=== PATIENT | female | born 1945 | race Caucasian/White ===

== ENCOUNTER 2017-10-30 21:47 | Inpatient (IN) | payer MEDICARE ==
[~2017-10-30 21:47] MED LIST: ISOVUE-370 76%-LOCM 1 ML ONE
[2017-10-30 22:29] LABS: Anion Gap 9 mmol/L (-14-95); Lactate 0.97 mmol/L (0.50-2.20); POC Est. GFR-MDRD-African-Amer 55; POC Estimated GFR-MDRD 45; T. Carbon Dioxide 32.1 mmol/L (1.0-85.0); pH (Venous) 7.342 (7.35-7.45); vO2 Saturation-calc 57.5 % (0.0-100.0)
[2017-10-30 22:29] LABS: #Eosinphils 0.1 thou/uL (0.0-0.7); #Monocytes 0.4 thou/uL (0.11-0.59); #Neutrophils 2.4 thou/uL (1.40-6.50); %Basophils 0.8 % (0.0-1.0); %Eosinophils 1.9 % (0.0-10.0); %Lymphocytes 40.5 % (21.0-51.0); %Monocytes 7.9 % (0.0-10.0); Hematocrit 39.7 % (36.0-47.0); Mean Platelet Volume 9.2 fL (7.4-10.4); Red Blood Cell (RBC) Count 4.14 mill/uL (4.20-5.40); White Blood Cell (WBC) Count 4.9 thou/uL (4.8-10.8)
--- NOTE | 2017-10-30 22:34 | CT ---
CT BRAIN NONCONTRAST: History: Stroke. Comparison: 01-08-17 FINDINGS: Noncontrast enhanced CT images of the brain demonstrate likely small area of old deep white matter an d basal ganglion stroke, not significantly changed since the previous comparison exam. No evidence of acute intracranial masses, hemorrhages, or strokes seen. IMPRESSION: Stable CT appearance of the brain. No acute intracranial abnormalities seen. Findings discussed with Dr. Owen at 10:00 p.m. on 10-30-17. Code CR POS: [facility]
[2017-10-30 22:36] LABS: PTT 28.5 SEC (22.9-36.1); Prothrombin Time 13.8 SEC (12.0-14.7)
--- NOTE | 2017-10-30 22:37 | CT ---
CONTRAST ENHANCED CTA OF THE BRAIN WITH PERFUSION: Technique: 2D and 3D reconstruction images performed on an independent 3D workstation. FINDINGS: The internal carotid arteries bilaterally are patent. The DAIANA, MCA and [employer] vessels are patent. Verteb ral basilar arteries are patent. No evidence of arterial occlusion is seen. The brain perfusion demon strates no definite evidence of areas of brain perfusion abnormalities. IMPRESSION: Normal intracranial CTA and brain perfusion. Findings discussed with Dr. Owen at 10:23 p.m. on 10-30-17. Code CR. POS: [facility]
[2017-10-30 22:40] LABS: ALT (SGPT) 11 U/L (8-55); AST (SGOT) 15 U/L (5-34); Alkaline Phosphatase 90 U/L (40-150); Anion Gap 11 mmol/L (10-20); BUN (Urea Nitrogen) 11 mg/dL (9.8-20.1); Bilirubin, Total 0.2 mg/dL (0.2-1.2); Calc. Creatinine Clearance 0 mL/min (70-130); Calcium 8.8 mg/dL (7.8-10.44); Carbon Dioxide 27 mmol/L (23-31); Chloride 104 mmol/L (98-107); Estimated GFR-MDRD 45; Globulin 2.9 g/dL (2.4-3.5); Protein, Total 6.5 g/dL (6.0-8.3)
--- NOTE | 2017-10-30 22:44 | CT ---
CTA CAROTIDS: History: Stroke. Technique: Contrast enhanced CTA of the carotid arteries performed. 2D and 3D reconstruction images p erformed on an independent 3D workstation. FINDINGS: The right brachiocephalic artery is unremarkable. Calcifications are seen in the right and left commo n carotid arteries without evidence of significant stenosis. The right and left distal, CCA, and prox imal internal carotid artery as well as the cervical portions of the ICA are patent without evidence of significant disease. Vertebral arteries bilaterally are unremarkable. IMPRESSION: Normal carotid CTA. POS: [facility]
[2017-10-30 22:45] LABS: Troponin I Less than 0.010 ng/mL (< 0.028)
[2017-10-30 23:26] LABS: Bilirubin Negative (Negative); Blood, Urine Negative (Negative); Glucose, Urine (Dipstick) Negative (Negative); Ketone, Urine Negative (Negative); Nitrite Negative (Negative); Protein, Urine (Dipstick) Negative (Neg-Trace); Urobilinogen 0.2 mg/dL (0.2-1.0)
[2017-10-30] MEDS ORDERED: Aspirin 300 MG Suppository ONE (23:51)
--- NOTE | 2017-10-31 00:45 | PDOC.EVN ---
Event Note - Event Note Event Note: [id number] 1. R/O CVA 2. HTN 3. H/O DM type 2 4. H/O HPL PLAN: SEE ORDERS
[2017-10-31] MEDS ORDERED: Acetaminophen 325 MG TAB PO PRN (01:11)
[2017-10-31] MEDS ORDERED: Ondansetron ODT 4 MG TAB SL PRN (01:11)
[2017-10-31] MEDS ORDERED: Ondansetron HCl/PF 4 MG/2 ML Vial IVP PRN (01:11)
[2017-10-31] MEDS ORDERED: hydrALAZINE 20 MG/ML VIAL SLOW IVP PRN (01:19)
[2017-10-31 01:23] VITALS: BMI 41.2
[2017-10-31] MEDS: Sodium Chloride 0.9% 1,000 ML IV SCH ×2 (02:13→16:01)
--- NOTE | 2017-10-31 07:08 | HP ---
DATE OF ADMISSION: 10/31/2017 CHIEF COMPLAINT: Headache. HISTORY OF PRESENT ILLNESS: Patient is a 71-year-old female with past medical history of hypertension, seizures, GERD, CVA, depression, was brought to the hospital because of headache and left-sided weakness. Patient said according to the caregiver the patient all of a sudden started complaining of headache. Headache was associated with vomiting and nausea. Patient then found to have left-sided weakness, so patient was brought to the ER. Upon ER arrival, the stroke team was called. Patient was found to have left-sided weakness and aphasia. ED physician discussed the case with neurologist, Dr. Bermudez, who recommended not to do a tPA as the patient is well known to him. Patient currently denies any complaints at this time. Patient kept aphasic, but showing her hand and answering questions through her hand and with signals, but not speaking. PAST MEDICAL HISTORY: As per HPI. PAST SURGICAL HISTORY: History of IVC filter and Watchman placement. SOCIAL HISTORY: Denies smoking, denies alcohol, denies any drugs. FAMILY HISTORY: Positive for 2 weeks prior to Thanksgiving time according to the caregiver. MEDICATIONS: Reviewed. REVIEW OF SYSTEMS: Constitutional: None available from the patient except for positive for headache, nausea, vomiting, and left-sided weakness per caregiver. PHYSICAL EXAMINATION: VITAL SIGNS: At the time of H and P, performed, blood pressure is 147/100, pulse oximetry is 95%, heart rate 92. GENERAL APPEARANCE: Patient appears tired and denies patent. NECK: Supple, no JVD. CARDIOVASCULAR: S1, S2 present. Regular rate and rhythm. No murmurs, no rubs , no gallops. RESPIRATORY: No wheezing, no rhonchi. Breath sounds bilaterally. GASTROINTESTINAL: Abdomen is distended, soft, nontender. No guarding, no organomegaly, no masses felt. PSYCHIATRIC: Mood appropriate at this time. CRANIAL NERVES SYSTEM: Awake. Not follow some commands. Positive for aphasia. Positive for left-sided weakness. Able to more right upper and right lower extremity. Able to say yes or no with the hand. PSYCHIATRIC: Mood, calm at this time. LABORATORY DATA: At the time of H and P performed, sodium 138, potassium 4.4, chloride 104, CO2 of 27, BUN of 11, creatinine 1.18. Troponin less than 0.010, PT of 13.8, INR 1. White count 4.9, hemoglobin 12.9, platelet count is 188. Urine negative. CT brain without contrast, stable CT appearance. No acute disease seen. CTA head and neck with brain perfusion normal CT angiography done in the ER, normal carotid CTA. ASSESSMENT AND PLAN: The patient is a 71-year-old female. 1. Rule out cerebrovascular accident. Plan to consult Neurology to evaluate the patient. Plan to hold off the MRI because of the history of Watchman placement. We will go ahead and monitor the patient closely. We will wait for neuro input. We will check EEG also, and we will follow the patient. We will do PT, OT, speech therapy evaluation. 2. History of headache plus nausea, vomiting. Plan to add antiemetics. Monitor closely. 3. History of hypertension. Monitor blood pressure. We will try to keep the blood pressure elevated. If the blood pressure is elevated above 200 then we will treat with p.r.n. BP meds. 4. Diabetes Mellitus type 2: Monitor blood sugars. We will do insulin sliding scale. 5. History of seizures. Continue antiepileptics. 6. History of gastroesophageal reflux disease. Continue proton pump inhibitor. The case was discussed in detail with the patient. DEYANIRA
--- NOTE | 2017-10-31 07:47 | RAD ---
ABDOMEN ONE VIEW: History: 71-year-old female with abdominal pain, chest pain, diarrhea, vomiting. FINDINGS: There is some contrast media within the renal collecting systems and within the bladder from a prior CT. There is some gas and some scattered fecal material in the colon. Post-operative changes in the r egion of the stomach. Status post vertebroplasty changes at T10. IMPRESSION: Iodinated contrast media within the renal collecting systems and bladder. Scattered gas and fecal mat erial in the colon. Post-operative changes of the stomach. No bowel obstruction or overt calculus or free air. POS: [facility]
[2017-10-31] MEDS ORDERED: ALPRAZolam 0.5 MG TAB PO PRN (08:35)
[2017-10-31] MEDS ORDERED: Nitroglycerin 0.4 MG TAB (25 Tab Bottle) SL PRN (08:35)
[2017-10-31] MEDS ORDERED: Non-Formulary Item 1 EACH (Sertraline Hcl [Zoloft] 50 MG) PO SCH (09:00)
[2017-10-31] MEDS: Heparin 5,000 UNITS/ML VIAL SC SCH ×2 (10:39→20:38)
[2017-10-31] MEDS: PHENobarbital 32.4 MG TAB PO SCH ×2 (11:48→20:38)
[2017-10-31] MEDS: lamoTRIgine 25 MG TAB PO SCH (11:48)
[2017-10-31] MEDS ORDERED: Morphine 4 MG/ML VIAL SLOW IVP SCH (12:15)
[2017-10-31] MEDS: Aspirin 300 MG Suppository PR SCH (12:43)
--- NOTE | 2017-10-31 13:02 | PDOC.EVN ---
Event Note - Event Note Event Note: pt seen and examined. VSS. continues to have aphasia w/o any other neurological deficit. c/o headache. Awaiting ECHO.Awaiting neurology consult. cont AR ASA. will follow. chart reviewed in detail.care discussed w pt
[2017-10-31] MEDS ORDERED: Non-Formulary Item 1 EACH (Omeprazole [Omeprazole] 40 MG) PO SCH (15:00)
[2017-10-31] MEDS ORDERED: PHENobarbital 32.4 MG TAB PO SCH (18:00)
[2017-10-31] MEDS ORDERED: Non-Formulary Item 1 EACH (Mirabegron [Myrbetriq] 50 MG) PO SCH (21:00)
[2017-10-31] MEDS ORDERED: Atorvastatin Calcium 10 MG TAB PO SCH (21:00)
[2017-10-31] MEDS ORDERED: Docusate 100 MG CAP PO SCH ×2 (21:00)
[2017-11-01] MEDS: Sodium Chloride 0.9% 1,000 ML IV SCH ×2 (06:20→15:48)
[2017-11-01] MEDS: Heparin 5,000 UNITS/ML VIAL SC SCH (09:49)
[2017-11-01] MEDS: lamoTRIgine 25 MG TAB PO SCH (09:50)
[2017-11-01] MEDS: PHENobarbital 32.4 MG TAB PO SCH (10:45)
[2017-11-01] MEDS ORDERED: levETIRAcetam 500 MG TAB PO SCH ×2 (10:45→21:00)
[2017-11-01] MEDS ORDERED: Aspirin 325 MG TAB PO SCH (10:45)
[2017-11-01] MEDS: Aspirin 300 MG Suppository PR SCH (10:54)
[2017-11-01 14:16] LABS: Bilirubin Negative (Negative); Blood, Urine Large (Negative); Glucose, Urine (Dipstick) Negative (Negative); Ketone, Urine Trace mg/dL (Negative); Nitrite Negative (Negative); Protein, Urine (Dipstick) 100 mg/dL (Neg-Trace)
[2017-11-01 14:23] LABS: Bacteria/HPF Rare-Few HPF (None Seen); Hyaline Casts/LPF 4-6 HYALINE CAST LPF (0-3 Hyaline); RBC/HPF GREATER THAN 50-TNTC HPF (0-3); Squamous Epithelial 0-3 HPF (0-3)
[2017-11-01 14:45] LABS: Yeast-All Forms None Seen HPF (None Seen)
[2017-11-01] MEDS ORDERED: levETIRAcetam 500 mg/5 ml Oral Solution PO SCH (14:45)
[2017-11-01 16:41] VITALS: BP 142/101; TEMP 98.8
--- NOTE | 2017-11-02 01:22 | DIS ---
DATE OF ADMISSION: 10/31/2017 DATE OF DISCHARGE: 11/01/2017 CONDITION AT THE TIME OF DISCHARGE: Stable and improved. DISCHARGE DIAGNOSES: 1. Stress-induced aphasia, now resolved. 2. Urinary tract infection. 3. Hematuria due to acute cystitis. 4. History of seizures. 5. History of cerebrovascular accident. 6. History of gastroesophageal reflux disease, hypertension, and depression. 7. History of inferior vena cava filter. 8. History of arrhythmia status post Watchman device placement. 9. Morbid obesity. PRIMARY CARE PHYSICIAN: Chandni Moore M.D. DISCHARGE DISPOSITION: Home with home health. PROCEDURES DONE IN THE HOSPITAL: Include: 1. CT angiogram of the neck and head, which is normal without any occlusion, stenosis, or plaque. 2. CT scan of the brain, which is stable without any acute abnormalities. 3. Abdominal x-ray which does not show any obstruction. CONSULTATION: Inhouse Neurology, Dr. Garrett Castillo. HISTORY OF PRESENT ILLNESS: Ms. Thompson is a 71-year-old female who recently lost her last m onth, who presented to the emergency room with complaints of headache associated with vomiting, nause a, left-sided weakness, and sudden onset of aphasia. She was admitted as a stroke workup. She was h emodynamically stable upon presentation. Please see admission history and physical for further detai ls. CT angiogram of the head and neck was done in the ER along with CT scan of the brain, which was unremarkable. HOSPITAL COURSE: The patient was admitted to stroke floor. MRI could not be done because of the Dimas chman device. The patient exhibited complete aphasia without any other neurological signs or symptom s. Speech therapist evaluated her, but she failed the speech therapy and was n.p.o. Her medications were changed to IV and Neurology saw the patient. Their recommendation was this is stress related a nd psychogenic in nature. Eventually, the patient had spontaneous resolution of her symptoms complet sharee. She was able to talk again the next morning and pass the swallow study and was able to take her pills and eat normally. Her family was at her bedside all this time. Physical therapy, occupational therapy did recommend some outpatient physical therapy which was kush goins with the help of the home health. The patient was complaining of some dysuria, so UA was checked, which showed multiple rbc's, wbc's, a nd leukocyte esterase, so she was started empirically on oral antibiotic which she will start and fin zheng in the outpatient setting. She will follow up with her primary care physician with results of e urine culture, which was obtained today. She will also have a repeat UA to evaluate for resolution of hematuria. If the hematuria persists, then she would benefit from Urology referral as an outpati ent. Currently, she is stable with stable hemoglobin and hematocrit. PHYSICAL EXAMINATION: GENERAL: She was seen and examined prior to discharge. She is comfortably lying in bed. VITAL SIGNS: Stable. Blood pressure 159/75. NEUROLOGIC: No acute distress. Awake, alert, oriented x3. Talking without any dysarthria. No word finding difficulties noticed. No acute distress. CHEST: Clear to auscultation. HEART: Rate and rhythm is regular. ABDOMEN: Obese, soft, nontender, nondistended. LABORATORY DATA: Hemoglobin 12.9. Serum chemistry showed creatinine of 1.18. Lipid panel normal. Cardiac enzymes are normal. At this time, she will follow up with her primary care physician and if her symptoms reoccur, she can follow up with her own neurologist, Dr. Anne. She actually was supposed to see Dr. Dayana cruz, but because of being in the hospital, she missed that appointment. She is encouraged to remake at appointment with the neurologist who is at [facility]. Discharge plan was discussed with the patient and her family present in the room. They verbalized understanding. All questions were answered.
[2017-11-02] MEDS ORDERED: Aspirin 325 MG TAB PO SCH (09:00)
== END 2017-11-01 17:38 | disposition home health service (06) | DRG 882 ==
LOC: ERS 21:47 → 2SE 10-31 00:08
PROVIDERS: ADMIT Internal Medicine; ATTEND Internal Medicine
DX: F45.8 Other somatoform disorders (principal); N30.01 Acute cystitis with hematuria; G40.909 Epilepsy, unspecified, not intractable, without status epilepticus; R47.01 Aphasia; Z68.41 Body mass index [BMI] 40.0-44.9, adult; K21.9 Gastro-esophageal reflux disease without esophagitis; I10 Essential (primary) hypertension; E66.01 Morbid (severe) obesity due to excess calories; F32.9 Major depressive disorder, single episode, unspecified; Z86.73 Personal history of transient ischemic attack (TIA), and cerebral infarction without residual deficits; Z95.818 Presence of other cardiac implants and grafts
CPT/HCPCS: 0042T; 36415; 36416; 51701; 70450; 70496; 70498; 74000; 80053; 80061; 81003; 81015; 82330; 82553; 82803; 83605; 84484; 85025; 85610; 85730; 87077; 87086; 87186; 93005; 93306; A4216; A4353; G8978-GP-CN; G8979-GP-CL; G8987-GO-CM; G8988-GO-CK; G8996-GN-CH; G8996-GN-CM; G8997-GN-CH; G8997-GN-CK; J1644; J1953; J2270; J2560; J7050

== ENCOUNTER → 2018-02-20 | Day surgery (SDC) | payer MEDICARE, OTHER ==
[2018-02-19 12:30] VITALS: BMI 40.2
[~2018-02-20] MED LIST changes: -ISOVUE-370 76%-LOCM 1 ML ONE; +Lidocaine 1% w/Epinephrine 1:100K 30 ML VIAL ONE; +PROPOFOL 200 MG/20 ML VIAL ONE; +Propofol 500 MG/50 ML VIAL ONE
[2018-02-20 11:38] LABS: #Basophils 0.1 thou/uL (0.0-0.2); #Eosinphils 0.1 thou/uL (0.0-0.7); #Lymphocytes 1.6 thou/uL (1.20-3.40); #Monocytes 0.4 thou/uL (0.11-0.59); #Neutrophils 3.1 thou/uL (1.40-6.50); %Basophils 1.6 % (0.0-1.0); %Eosinophils 2.5 % (0.0-10.0); %Lymphocytes 30.8 % (21.0-51.0); %Monocytes 6.9 % (0.0-10.0); %Neutrophils 58.1 % (42.0-75.0); Hemoglobin 13.1 g/dL (12.0-16.0); Mean Corpuscular HGB CONC 32.3 g/dL (32.0-36.0); Mean Corpuscular Hemoglobin 30.9 pg (27.0-31.0); Mean Corpuscular Volume 95.5 fl (81.0-99.0); Mean Platelet Volume 9.2 fL (7.4-10.4); Platelet Count 224 thou/uL (130-400); Red Blood Cell (RBC) Count 4.24 mill/uL (4.20-5.40); White Blood Cell (WBC) Count 5.3 thou/uL (4.8-10.8)
[2018-02-20 11:47] LABS: PTT 27.7 SEC (22.9-36.1); Prothrombin Time 13.7 SEC (12.0-14.7)
[2018-02-20 11:57] LABS: Anion Gap 12 mmol/L (10-20); BUN (Urea Nitrogen) 13 mg/dL (9.8-20.1); Calc. Creatinine Clearance 109 mL/min (70-130); Calcium 9.1 mg/dL (7.8-10.44); Carbon Dioxide 25 mmol/L (23-31); Chloride 105 mmol/L (98-107); Estimated GFR-MDRD 70; Glucose 89 mg/dL (83-110); Potassium 4.3 mmol/L (3.5-5.1); Sodium 138 mmol/L (136-145)
--- NOTE | 2018-02-20 14:21 | OP ---
DATE OF PROCEDURE: 02/20/2018 PROCEDURE: Cardioversion. REFERRING PHYSICIAN: Dr. Esteban Gunn REASON FOR PROCEDURE: Mrs. Thompson is a 72-year-old female with a history of atrial fibrillation/flu tter most recent ablation in 04/2016. She had recurrence of atrial flutter persisting ever since the mid 10/2017. She is more symptomatic, here for a cardioversion. She does have history of adequatel y occluding Watchman device in place on low dose aspirin. PROCEDURE: The patient received deep sedation by Anesthesia specialist. After adequate sedation ach ieved, a synchronized 100 joule shock promptly converted the patient back to sinus rhythm with occasi onal PACs seen, rate was about 75 beats per minute. CONCLUSION: Successful cardioversion. PLAN: Continue monitoring, now off anticoagulation, has a Watchman device in place. Consider antiar rhythmic medication versus re-ablation if recurrent symptomatic atrial fibrillation/flutter present.
--- NOTE | 2018-02-20 14:26 | OP ---
DATE OF PROCEDURE: 02/20/2018 REFERRING PHYSICIAN: Dr. Esteban Gunn PROCEDURE: Loop recorder explant and reimplanted. REASON FOR PROCEDURE: Ms. Thompson is a pleasant 72-year-old woman with history of atrial fibrillatio n and atrial flutter who was noted to have a recurrence since mid October based on her loop recorder . She also had seizure disorder, prior history of syncopal spells and using a LINQ recorder for cont inued arrhythmia monitoring as well as monitoring of her syncopal spells. Loop recorder battery is at elective replacement indicator. Here for loop recorder change out. PROCEDURE: The patient was in deep sedation post her cardioversion. The left precordial loop record er site was prepped and draped, anesthetized using subcutaneous lidocaine and a loop recorder was exp lanted. Following that with a standard LINQ recorder, put a new LINQ recorder was implanted in the s araseli location. The wound was closed with 2 layers of sutures and john were used. CONCLUSION: Successful LINQ recorder explantation and then reimplantation.
== END ==
LOC: CCL 10:48
PROVIDERS: ATTEND Internal Medicine Cardiovascular Disease
PROC: 5A2204Z Restoration of Cardiac Rhythm, Single (ICD-10-PCS; principal; 2018-02-20)
PROC: 0JPT32Z Removal of Monitoring Device from Trunk Subcutaneous Tissue and Fascia, Percutaneous Approach (ICD-10-PCS; 2018-02-20)
PROC: 0JH632Z Insertion of Monitoring Device into Chest Subcutaneous Tissue and Fascia, Percutaneous Approach (ICD-10-PCS; 2018-02-20)
DX: I48.91 Unspecified atrial fibrillation (principal); I48.92 Unspecified atrial flutter; I25.2 Old myocardial infarction; I25.10 Atherosclerotic heart disease of native coronary artery without angina pectoris; I50.9 Heart failure, unspecified; E78.5 Hyperlipidemia, unspecified; G40.909 Epilepsy, unspecified, not intractable, without status epilepticus; R42 Dizziness and giddiness; M19.90 Unspecified osteoarthritis, unspecified site; J44.9 Chronic obstructive pulmonary disease, unspecified; Z86.73 Personal history of transient ischemic attack (TIA), and cerebral infarction without residual deficits; Z79.82 Long term (current) use of aspirin; Z79.899 Other long term (current) drug therapy; Z88.1 Allergy status to other antibiotic agents; Z88.2 Allergy status to sulfonamides; Z88.5 Allergy status to narcotic agent; Z88.8 Allergy status to other drugs, medicaments and biological substances; Z91.040 Latex allergy status; Z95.818 Presence of other cardiac implants and grafts; Z98.890 Other specified postprocedural states
CPT/HCPCS: 33282; 33284; 80048; 85025; 85610; 85730; 92960; 93005; C1764; 36415; 93010; J2001; J2704

== ENCOUNTER 2024-01-30 08:12 | Outpatient (CLI) | payer MEDICARE, OTHER | END 2024-01-30 08:13 | disposition home or self-care (01) | LOC: RAD 08:12 | PROVIDERS: ATTEND Internal Medicine | DX: R06.00 Dyspnea, unspecified (principal) | CPT/HCPCS: 71046 ==

== ENCOUNTER 2024-06-17 12:39 | Outpatient (CLI) | payer MEDICARE, OTHER | END 2024-06-17 12:40 | disposition home or self-care (01) | LOC: EEG 12:39 | PROVIDERS: ATTEND Psychiatry & Neurology Neurology | DX: R56.9 Unspecified convulsions (principal) | CPT/HCPCS: 95816 ==